=== PATIENT | female | born 1990 | race Caucasian/White ===

== ENCOUNTER 2018-07-01 17:24 | Emergency (ER) | payer OTHER ==
[~2018-07-01] VITALS: Ht 165.1 cm; Wt 95.0 kg
[2018-07-01] MEDS ORDERED: LIDOCAINE 1%/EPI 1:100,000 10 ML VIAL IJ ONE (19:00)
[2018-07-01] MEDS ORDERED: SULFAMETHOXAZOLE/TRIMETHOPRIM 800/160MG TABLET PO ONE (19:00)
[2018-07-01] MEDS ORDERED: CEFTRIAXONE 1 G PREMIX 50 ML IV ONE (19:00)
[2018-07-01] MEDS ORDERED: KETOROLAC 30MG/ML VIAL IV STA (19:00)
[2018-07-01] MEDS ORDERED: MORPHINE SULFATE 4 MG/ML CPJ (NOT FOR IM USE) IV ONE (19:00)
[2018-07-01 21:40] VITALS: BP 114/64
== END 2018-07-01 21:45 | disposition home or self-care (01) ==
LOC: ER 17:24
DX: L03.311 Cellulitis of abdominal wall (principal); L02.211 Cutaneous abscess of abdominal wall; Z90.49 Acquired absence of other specified parts of digestive tract; Z98.890 Other specified postprocedural states
CPT/HCPCS: 10060; 96365; 96375; 99283; J0696; J1885; J2270; J3490

== ENCOUNTER 2018-12-25 14:37 | Emergency (ER) | payer MEDICAID, OTHER ==
[~2018-12-25] VITALS: Ht 165.1 cm; Wt 100.0 kg
[2018-12-25] MEDS ORDERED: MORPHINE SULFATE 4 MG/ML CPJ (NOT FOR IM USE) IV ONE (15:15)
[2018-12-25 17:20] VITALS: BP 127/81
== END 2018-12-25 17:30 | disposition home or self-care (01) ==
LOC: ER 14:37
DX: S93.401A Sprain of unspecified ligament of right ankle, initial encounter (principal); W10.8XXA Fall (on) (from) other stairs and steps, initial encounter; Y93.01 Activity, walking, marching and hiking; Y92.89 Other specified places as the place of occurrence of the external cause; F17.210 Nicotine dependence, cigarettes, uncomplicated; Z71.6 Tobacco abuse counseling
CPT/HCPCS: 73560; 73610; 96374; 99283; 99406; J2270

== ENCOUNTER 2019-07-02 11:03 | Emergency (ER) | payer MEDICAID, OTHER ==
[~2019-07-02] VITALS: Ht 157.5 cm; Wt 101.0 kg
[2019-07-02] MEDS ORDERED: FLUORESCEIN SODIUM 1MG/STRIP RIGHTEYE ONE (12:00)
[2019-07-02 13:12] VITALS: BP 113/69
== END 2019-07-02 13:13 | disposition home or self-care (01) ==
LOC: ER 11:03
DX: S05.01XA Injury of conjunctiva and corneal abrasion without foreign body, right eye, initial encounter (principal); X58.XXXA Exposure to other specified factors, initial encounter; Y93.89 Activity, other specified; Y92.89 Other specified places as the place of occurrence of the external cause
CPT/HCPCS: 99283

== ENCOUNTER 2021-03-23 07:37 | Emergency (ER) | payer MEDICAID ==
[~2021-03-23] VITALS: Ht 157.5 cm; Wt 109.0 kg
[2021-03-23] MEDS ORDERED: MORPHINE SULFATE 4 MG/ML CPJ (NOT FOR IM USE) IV STA (07:54)
[2021-03-23] MEDS ORDERED: ONDANSETRON HCL 4MG/2ML INJ IV STA (07:54)
[2021-03-23 08:12] LABS: BASOPHILS % 0.4 % (0.0-2.0); EOSINOPHILS % 2.2 % (0.0-5.0); HEMOGLOBIN. 12.9 g/dL (12.0-16.0); LYMPHOCYTES % 27.6 % (20.0-50.0); MEAN CORPUSCULAR HEMOGLOBIN 27.3 pg (28.0-32.0); MEAN CORPUSCULAR VOLUME 82.4 fL (81.0-99.0); MEAN PLATELET VOLUME 8.4 fl (7.4-10.4); MONOCYTES % 5.7 % (2.0-8.0); NEUTROPHILS % 64.1 % (40.0-76.0); PLATELET 381 x1000/uL (130-400); RED BLOOD CELL COUNT 4.74 mill/uL (4.2-5.4); RED CELL DISTRIBUTION WIDTH 14.7 % (11.6-14.6)
[2021-03-23] MEDS ORDERED: MORPHINE SULFATE 2 MG/ML CPJ (NOT FOR IM USE) IV SCH (08:15)
[2021-03-23 08:17] LABS: CHLORIDE 105 mEq/L (98-107)
[2021-03-23 08:20] LABS: INR 0.9; PROTHROMBIN TIME 10.1 sec (9.6-11.0)
[2021-03-23 08:21] LABS: CLARITY URINE CLEAR (CLEAR); COLOR URINE YELLOW (YELLOW); KETONES URINE NEGATIVE (NEGATIVE); LEUKOCYTE ESTERASE URINE NEGATIVE (NEGATIVE); NITRITE URINE NEGATIVE (NEGATIVE); OCCULT BLOOD URINE TRACE (NEGATIVE); PH URINE 7.5 (4.5-8.0); PROTEIN URINE NEGATIVE (NEGATIVE); SPECIFIC GRAVITY URINE 1.016 (1.005-1.030)
[2021-03-23 08:49] LABS: HCG SCREEN NEGATIVE
[2021-03-23] MEDS ORDERED: TOPUD PO (09:57)
[2021-03-23] MEDS ORDERED: ONDA4TAB5 PO (09:57)
[2021-03-23 10:20] VITALS: BP 102/57
== END 2021-03-23 10:34 | disposition home or self-care (01) ==
LOC: ER 07:37
DX: R10.13 Epigastric pain (principal); Z98.890 Other specified postprocedural states; Z90.49 Acquired absence of other specified parts of digestive tract
CPT/HCPCS: 36415; 74176; 80053; 81003; 83690; 84703; 85025; 85610; 93005; 96374; 96375; 99285; J2270; J2405; Z7610

== ENCOUNTER 2022-08-05 16:24 | Emergency (ER) | payer MEDICAID, MEDICARE ==
[~2022-08-05] VITALS: Ht 167.6 cm; Wt 80.0 kg
[~2022-08-05 16:24] MED LIST: ONDA4TAB5 PO; TOPUD PO
[2022-08-05 16:36] VITALS: BP 116/57
== END 2022-08-05 23:25 | disposition left against medical advice (07) ==
LOC: ER 16:24
DX: Z53.21 Procedure and treatment not carried out due to patient leaving prior to being seen by health care provider (principal)
CPT/HCPCS: 99281